=== PATIENT | female | born 2000 | race Caucasian/White ===

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

== ENCOUNTER 2024-09-21 09:06 | Emergency (ER) | payer BC, OTHER ==
[~2024-09-21] VITALS: Ht 167.6 cm; Wt 107.7 kg
[~2024-09-21 09:06] MED LIST: ACET500T15 PO; AUGM875T28 PO; IBUPOTC PO; NATATAB2 PO; NORC1TAB7 PO; SENN-53 PO; YAZ1TAB PO; ZOLO100T PO
[2024-09-21 09:08] VITALS: BP 147/75; TEMP 99.3; O2SAT 100
[2024-09-21] MEDS ORDERED: SERT50TA29 (09:25)
[2024-09-21] MEDS: LORazepam 0.5 MG TAB PO STA (11:38)
[2024-09-21] MEDS: IBUPROFEN 600MG TAB PO ONE (12:29)
== END 2024-09-21 13:16 | disposition home or self-care (01) ==
LOC: M ED 09:06
DX: F43.0 Acute stress reaction (principal); F41.9 Anxiety disorder, unspecified; F32.A Depression, unspecified; E28.2 Polycystic ovarian syndrome; F17.290 Nicotine dependence, other tobacco product, uncomplicated; F12.10 Cannabis abuse, uncomplicated; F10.10 Alcohol abuse, uncomplicated; Z79.899 Other long term (current) drug therapy